=== PATIENT | male | born 1980 | race Caucasian/White ===

== ENCOUNTER 2022-01-03 19:30 | Emergency (ER) | payer BC, SELFPAY ==
[2022-01-03 19:36] VITALS: BP 141/95; PULSE 80; RESP 16; TEMP 36.1; O2SAT 100
--- NOTE | 2022-01-03 19:36 | ED.SKABFB ---
HPI - Skin/Abscess/Foreign Bdy General Chief complaint: Skin/Abscess/Foreign Body Stated complaint: RASH Time Seen by Provider: 01/03/22 19:36 Source: patient Mode of arrival: ambulatory Limitations: no limitations History of Present Illness HPI narrative: 41-year-old male presents with itchy rash to back, chest, both arms for 3 days. States that it started 1 hour after eating shrimp. Was on vacation in [facility]. Reports that he has had strep in the past but not recently. No shortness of breath, difficulty swallowing. Has been taking Benadryl with no improvement of symptoms. Denies use of any new sunscreen. Denies history of heat rash. Was not in a hot tub while on vacation. All systems reviewed and negative except as noted above. Related Data Allergies Allergy/AdvReac Type Severity Reaction Status Date / Time No Known Allergies Allergy Unverified 09/05/21 07:27 Review of Systems Review of Systems: CONSTITUTIONAL: Denies fever, chills, or sweats. EYES: Denies visual changes, redness, or discharge. ENT: Denies rhinorrhea, congestion, sore throat, or otalgia. CARDIOVASCULAR: Denies chest pain, palpitations, or edema. RESPIRATORY: Denies cough or dyspnea. GASTROINTESTINAL: Denies abdominal pain, nausea, vomiting, or diarrhea. GENITOURINARY: Denies dysuria or hematuria. SKIN: Reports rash and itching. MUSCULOSKELETAL: Denies back pain, joint pain, or myalgia. NEUROLOGIC: Denies headache, numbness, or weakness. PSYCHIATRIC: Denies anxiety or depression. All other systems reviewed are negative, except as documented in HPI. [facility] Past Medical History Medical History Plantar fasciitis of left foot Strep pharyngitis Viral warts Social History Social History (Updated 09/05/21 @ 07:27 by Callie Carvalho) Smoking status: Never smoker Second hand tobacco smoke exposure: No Alcohol intake: never Substance use: never Substance use type: does not use Gender identity (if verbalized by the patient): Male Sexual Orientation (if Verbalized by the Patient): Straight or Heterosexual Comments At time of signature, agree with nursing past medical, surgical, social and family history. There is no relevant family history pertinent to the presenting complaint. Exam Narrative: GENERAL: This is a well-nourished, well-developed patient, in no apparent distress. HEAD: normocephalic, atraumatic. EYES: PERRL. Sclera clear/white. Vision is grossly intact. EARS: External ears normal NOSE: External nose normal THROAT: Mucous membranes moist NECK: Neck supple, non-tender without lymphadenopathy, masses or thyromegaly. CARDIOVASCULAR: Regular rate and rhythm without murmurs, gallops, or rubs. RESPIRATORY: Clear to auscultation. Breath sounds equal bilaterally. No wheezes, rales, or rhonchi. SKIN: warm, Dry, intact with no suspicious lesions, good texture and turgor. Erythematous fine papular rash to back, chest (mostly under breasts), upper arms and around wrists. no drainage. NEURO: awake, alert, and oriented to person, place and time. There were no obvious focal neurologic abnormalities. EXTREMITIES: Normal range of motion to all extremities. Course Course Level of Care: Express Care Visit Vital Signs Vital signs: Vital Signs Temperature 36.1 C L 01/03/22 19:36 Pulse Rate 80 01/03/22 19:36 Respiratory Rate 16 01/03/22 19:36 Blood Pressure 141/95 H 01/03/22 19:36 Pulse Oximetry 100 01/03/22 19:36 Temperature 36.1 C L 01/03/22 19:36 Pulse Rate 80 01/03/22 19:36 Respiratory Rate 16 01/03/22 19:36 Blood Pressure 141/95 H 01/03/22 19:36 Pulse Oximetry 100 01/03/22 19:36 reviewed MDM - Skin/Abscess/Foreign Bdy MDM Narrative Medical decision making narrative: rash is concerning for allergic vs folliculitis. Will treat for both due to pt eating new food and also being in ocean and shared pool water. will rx bactrim. Patient is aw
== END 2022-01-03 19:44 | disposition home or self-care (01) ==
PROVIDERS: Emergency Provider Nurse Practitioner Family; PCP Family Medicine
DX: R21 Rash and other nonspecific skin eruption (principal)
CPT/HCPCS: 99213; G0463